=== PATIENT | female | born 1950 | race Caucasian/White ===

== ENCOUNTER 2023-04-15 16:42 | Emergency (ER) | payer OTHER, SELFPAY ==
[2023-04-15] VITALS (7 sets, daily range): BP systolic 123–182; BP diastolic 64–98; BMI 30.9
--- NOTE | 2023-04-15 17:12 | ED.GENMED ---
History of Present Illness
General
Chief Complaint: Chest Pain
Source: patient
Exam Limitations: none
Time Seen by Provider: 04/15/23 16:55
Nursing documentation reviewed up to this point in time: agreed with
Travel History
Have you had any contact with someone who has COVID-19?: No
Do you have any symptoms of coronavirus? Fever > 100 degrees, chills, cough, shortness of breath, sore throat, loss of taste or smell, muscle aches, or headache?: No
History of Present Illness
History of Present Illness:
Patient with history of hypertension and hypercholesterolemia, presents to ED secondary to sudden onset of chest pain around 4 PM, while she was with her family. Chest pain described as pressure, associated with jaw and teeth pain, without
diaphoresis or nausea sensation. Denies dizziness. Patient was told by her family members that she appears to be flushed. Patient states that she had similar symptoms 2 weeks ago which resolved spontaneously. Patient also has had similar chest
pain, which resulted in receiving cardiac catheterization 2 years ago, which was normal. Denies recent illness. Denies recent change in medications or diet. Denies recent travel. Denies recent surgery. Denies leg pain or swelling.
Review of Systems
Review of Systems
Allergies reviewed?: Yes
All Other Systems: ROS reviewed and negative except as documented in HPI and ROS
Constitutional: Reports no symptoms
EENT: Reports no symptoms
Respiratory: Reports no symptoms
Cardiac: Reports chest pain
ABD/GI: Reports no symptoms
: Reports no symptoms
Musculoskeletal: Reports no symptoms
Skin: Reports no symptoms
Neurological: Reports no symptoms
Phy Exam
Physical Exam
Physical Exam:
Physical Exam
General: no apparent distress, not acutely ill. afebrile
Head: nc/at. eomi
Neck: supple. no meningeal signs.
Heart: s1/s2 regular rate and rhythm, no murmur. equal radial pulses.
Lungs: no acute respiratory distress. clear bilaterally
Abdomen: normal bowel sounds. not tender.
Neuro: alert and oriented. no focal neurological deficits
Skin: no rash
Psychiatric: well kept. interactive and cooperative
Extremities: no edema. no calf tenderness.
Scores
Heart Score for Chest Pain Patients
STEMI patient?: No
History: Slightly or Non-Suspicious
ECG: Normal
Age: >/= 65 years
Risk Factors: 1 or 2 Risk Factors
Troponin: </= Normal Limit
Heart Score for Chest Pain Patients: 3
Heart Score Risk: 2.5% MACE over next 6 weeks
Course
Orders/Labs/Results
Orders:
Orders
04/15/23 16:43
Electrocardiogram (*1) Urgent
Reason for Study: Chest Pain
EKG- Treatment ONCE
04/15/23 17:01
Electrocardiogram (*1) Urgent
Reason for Study: Chest Pain
EKG- Treatment ONCE
04/15/23 17:02
CR Chest Portable - 1 View Urgent
Comment:
Reason For Exam: chest pain
Reason Study Needs to be Portable: Patient Unstable
04/15/23 17:27
Complete Blood Count/With Diff Urgent
Troponin I Urgent
04/15/23 18:29
Basic Metabolic Panel Urgent
04/15/23 19:33
EKG- Treatment ONCE
04/15/23 22:00
Electrocardiogram (*1) Urgent
Reason for Study: Chest Pain
04/15/23 22:04
Troponin I Urgent
Abnormal Lab Results
04/15/23 04/15/23
17:27 18:29
MPV 10.6 H fL
(7.4-10.4)
Absolute Monos (auto) 0.7 H 10^3/uL
(0.1-0.6)
BUN 18 H mg/dl
(7-17)
04/15/23 17:27
04/15/23 18:29
Vital Signs
Initial and Last Documented VS:
Initial Vital Signs
Temp Pulse Resp BP Pulse Ox
99.2 F 74 18 182/91 97
04/15/23 16:47 04/15/23 16:47 04/15/23 16:47 04/15/23 16:47 04/15/23 16:47
Last Documented Vital Signs
Temp Pulse Resp BP Pulse Ox
99.2 F 72 16 125/80 94
04/15/23 16:47 04/15/23 23:00 04/15/23 23:00 04/15/23 23:00 04/15/23 23:00
MDM/Problems Addressed
MDM/Problems Addressed:
Patient with an unremarkable workup in ED, including repeat troponin and EKG.
Patient will be discharged home in stable condition, to the care of her daughter, with recommendation to follow-up with her primary assembly inspector helper for reevaluation, or return to ED with recurrent chest pain.
Patient is afebrile, hemodynamically stable, and without any chest pain at time of discharge.
*EKG
Interpreted by ED Provider?: Yes
EKG Intrepretation Date: 04/15/23
Heart Rate: 81
Rate: normal
Rhythm: sinus
[place]: normal axis
Interval: normal interval
*Critical Care Note
Total Time (30-74mins, 75-104mins- exclusive of procedures): Not Applicable
ED Attending Note
-
Portions of this chart may have been created with voice recognition software.� Occasional wrong word or��sound alike� substitutions may have occurred due to the inherent limitations of voice recognition software.
Discharge Plan
Departure
Patient Disposition: Home (Routine Discharge)
Date of Disposition: 04/15/23
Time of Disposition: 22:57
Patient with high blood pressure during this ER visit?: Yes
Condition: Good
Discharge Problem:
Chest pain
Instructions: Chest Pain DCA Follow Up
Prescriptions:
No Action
montelukast 10 MG tablet
10 mg PO DAILY
budesonide-formoterol [Symbicort] 1 PUFF HFA aerosol inhaler
2 puff inhalation R BID
elderberry fruit and flower 1 EACH capsule
2 ea PO DAILY
aspirin 81 MG tablet,chewable
81 mg PO DAILY 0RF
doxycycline hyclate 100 mg Tablet
100 mg PO BID
atorvastatin 20 MG tablet
20 mg PO DAILY
Referrals:
Fanny Casey PA [Family Provider] -
Riley Alejandro MD [Active] -
Activity Restrictions/Additional Instructions:
As discussed, please follow-up with your assembly inspector helper for further evaluation and treatment. Please return to ED with recurrent chest pain.
Interventions
Interventions:
*Risk Screen - Suicide Last Done: 04/15/23 16:47
*General Assessment Last Done: 04/15/23 16:47
*Neglect/Abuse Screening Last Done: 04/15/23 16:47
ED- Fall Risk Assessment Last Done: 04/15/23 17:32
*ED COVID-19 Vaccine History Last Done: 04/15/23 16:47
*Nursing Disposition Last Done: 04/15/23 23:09
ED- Cardiac Assessment Last Done: 04/15/23 17:32
Discharge Date and Time
Discharge Date/Time: 04/15/23 23:11
[2023-04-15 17:39] LABS: % Basophils 0.6 % (0-2); % Eosinophils 2.5 % (0-6); % Immature Granulocytes 0.2 % (0-0.5); % Lymphocytes 35.8 % (20.5-51.1); % Monocytes 8.6 % (1.7-9.3); % Neutrophils 52.3 % (42.2-75.2); Absolute Basophils 0.1 10^3/uL (0-0.2); Absolute Eosinophils 0.2 10^3/uL (0-0.7); Absolute Lymphocytes 2.9 10^3/uL (1.2-3.4); Absolute Monocytes 0.7 10^3/uL (0.1-0.6); Absolute Neutrophils 4.2 10^3/uL (1.4-6.5); Hematocrit 41.5 % (37.0-47.0); Hemoglobin 14.2 g/dL (12.0-16.0); Mean Corp Hgb Conc. 34.2 g/dL (33.0-37.0); Mean Corpuscular Hgb 30.1 pg (27.0-31.0); Mean Corpuscular Volume 87.9 fL (81.0-99.0); Mean Platelet Volume 10.6 fL (7.4-10.4); Nucleated Red Blood Cells % 0 %; Platelet Count 220 10^3/uL (130-400); Red Blood Cell Count 4.72 10^6/uL (4.20-5.40); Red Cell Dist. Width 13.7 % (11.5-14.5); White Blood Cell Count 8.1 10^3/uL (4.8-10.8)
[2023-04-15 18:03] LABS: Troponin I < 0.012 ng/ml
[2023-04-15 19:02] LABS: Blood Urea Nitrogen 18 mg/dl (7-17); Calcium 8.7 mg/dl (8.4-10.2); Carbon Dioxide 27 mmol/L (22-30); Chloride 106 mmol/L (98-107); Estimated Creatinine Clearance 95 ml/min; Glucose 91 mg/dl (70-99); Sodium 136 mmol/L (135-145); eGFR > 60.00
[2023-04-15 22:40] LABS: Troponin I < 0.012 ng/ml
== END 2023-04-15 23:11 | disposition home or self-care (01) ==
LOC: EMR 16:42
PROVIDERS: Emergency Medicine; EMERGENCY PHYSICIAN Emergency Medicine; FAMILY PHYSICIAN Physician Assistant Medical
DX: R07.89 Other chest pain (principal); I10 Essential (primary) hypertension; R68.84 Jaw pain
CPT/HCPCS: 99285; 71045; 80048; 84484; 85025; 93005

== ENCOUNTER → 2023-05-16 08:02 | Outpatient (REF) | payer OTHER, SELFPAY | LOC: DHCBC/DCA 08:02 | PROVIDERS: ATTENDING PHYSICIAN Internal Medicine Cardiovascular Disease; FAMILY PHYSICIAN Physician Assistant Medical | DX: R07.9 Chest pain, unspecified (principal) | CPT/HCPCS: 78452; 93017; A9500 ==

== ENCOUNTER 2023-06-21 11:30 | Emergency (ER) | payer OTHER, SELFPAY ==
[2023-06-21] VITALS (7 sets, daily range): BP systolic 136–162; BP diastolic 64–98; PULSE 61; BMI 31.5
[2023-06-21 11:55] LABS: % Basophils 0.7 % (0-2); % Eosinophils 4.8 % (0-6); % Immature Granulocytes 0.3 % (0-0.5); % Lymphocytes 43.7 % (20.5-51.1); % Monocytes 6.2 % (1.7-9.3); % Neutrophils 44.3 % (42.2-75.2); Absolute Basophils 0.1 10^3/uL (0-0.2); Absolute Eosinophils 0.4 10^3/uL (0-0.7); Absolute Lymphocytes 3.8 10^3/uL (1.2-3.4); Absolute Monocytes 0.5 10^3/uL (0.1-0.6); Absolute Neutrophils 3.8 10^3/uL (1.4-6.5); Hematocrit 47.3 % (37.0-47.0); Hemoglobin 15.4 g/dL (12.0-16.0); Mean Corp Hgb Conc. 32.6 g/dL (33.0-37.0); Mean Corpuscular Hgb 29.6 pg (27.0-31.0); Mean Corpuscular Volume 90.8 fL (81.0-99.0); Mean Platelet Volume 11.1 fL (7.4-10.4); Nucleated Red Blood Cells % 0 %; Platelet Count 225 10^3/uL (130-400); Red Blood Cell Count 5.21 10^6/uL (4.20-5.40); Red Cell Dist. Width 13.8 % (11.5-14.5); White Blood Cell Count 8.6 10^3/uL (4.8-10.8)
[2023-06-21 12:05] LABS: ALT (SGPT) 21 U/L (0-35); AST (SGOT) 21 U/L (14-36); Albumin 3.9 g/dl (3.5-5.0); Alkaline Phosphatase 101 U/L (38-126); Blood Urea Nitrogen 17 mg/dl (7-17); Calcium 8.9 mg/dl (8.4-10.2); Carbon Dioxide 22 mmol/L (22-30); Chloride 107 mmol/L (98-107); Estimated Creatinine Clearance 96 ml/min; Glucose 106 mg/dl (70-99); Potassium 4.1 mmol/L (3.5-5.1); Sodium 134 mmol/L (135-145); Total Bilirubin 0.4 mg/dl (0.2-1.3); Total Protein 6.4 g/dl (6.3-8.2); eGFR > 60.00
[2023-06-21 12:14] LABS: Troponin I < 0.012 ng/ml
--- NOTE | 2023-06-21 13:21 | ED.GENMED ---
History of Present Illness
General
Chief Complaint: Dizziness
Time Seen by Provider: 06/21/23 12:48
Travel History
Have you had any contact with someone who has COVID-19?: No
Do you have any symptoms of coronavirus? Fever > 100 degrees, chills, cough, shortness of breath, sore throat, loss of taste or smell, muscle aches, or headache?: No
History of Present Illness
History of Present Illness:
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 She states she was in a reclined position
having her hair washed, when she stood upright she became profoundly vertiginous and felt as though she might vomit. She did not lose consciousness. She feels improved currently but any movement in the upright position provokes more symptoms.
Denies any vision changes, headache chest pain, or difficulty breathing currently
Review of Systems
Review of Systems
Allergies reviewed?: Yes
All Other Systems: ROS reviewed and negative except as documented in HPI and ROS
Phy Exam
Physical Exam
Physical Exam:
GEN: Well appearing, NAD, WDWN
HEENT: Oral mucosa moist, no scleral icterus, no nasal congestion
Cardiac: Regular rate
Lung: No respiratory distress, no tachypnea
MSK: No gross deformity or injuries
Skin: Good color, no pallor or jaundice, no rashes
Neuro: AO x3; CN II-XII grossly intact. BUE strength 5/5 in all lopez, sensation intact and symmetric. BLE strength 5/5 in all lopez, sensation intact and symmetric, no limb ataxia x 4. Horizontal nystagmus provoked with upright positioning
Psych: Calm, cooperative
Course
Orders/Labs/Results
Orders:
Orders
06/21/23 11:33
Electrocardiogram (*1) Urgent
Reason for Study: Chest Pain
Cardiac Monitoring- Treatment ONCE
EKG- Treatment ONCE
IV Insert/Care/Rem.- Treatment PRN
O2 Therapy [RESP] Urgent
Titrate/Wean O2 to maintain O2 sat greater than (%): 90
Special Instructions: Maintain sats >/=90%
Pulse Ox/spot Check [RESP] Urgent
Quantity: 1
Special Instructions: ON ROOM AIR
06/21/23 11:36
Complete Blood Count/With Diff Urgent
Comprehensive Metabolic Panel Urgent
Troponin I Urgent
06/21/23 13:03
Pt Eval And Treat Urgent
Treatment: BPPV
Activity Level: As Tolerated
06/21/23 13:50
Meclizine [Antivert] 12.5 mg PO NOW STA
06/21/23 14:03
Meclizine [Antivert] 12.5 mg PO NOW STA
Abnormal Lab Results
06/21/23
11:36
Hct 47.3 H %
(37.0-47.0)
MCHC 32.6 L g/dL
(33.0-37.0)
MPV 11.1 H fL
(7.4-10.4)
Absolute Lymphs (auto) 3.8 H 10^3/uL
(1.2-3.4)
Sodium 134 L mmol/L
(135-145)
Creatinine 0.5 L mg/dL
(0.6-1.0)
Glucose 106 H mg/dl
(70-99)
06/21/23 11:36
06/21/23 11:36
Vital Signs
Initial and Last Documented VS:
Initial Vital Signs
Pulse Resp BP Pulse Ox
63 19 162/84 97
06/21/23 11:34 06/21/23 11:34 06/21/23 11:34 06/21/23 11:34
Last Documented Vital Signs
Pulse Resp BP Pulse Ox
65 21 136/83 93
06/21/23 14:45 06/21/23 14:45 06/21/23 14:00 06/21/23 12:30
MDM/Problems Addressed
MDM/Problems Addressed:
Patient's clinical findings are most compatible with benign positional vertigo provoked by recumbent positioning while getting her hair dressed. She has no focal neurologic deficits while at rest in bed. She was evaluated by physical therapy with
strong provocation of response through a Mariama-Hallpike maneuver, her symptoms did improve to some degree however again worsened prompting need for meclizine. No indication for neuroimaging, do not suspect stroke at this time. Will prescribe short
course of meclizine orders are written for outpatient physical therapy
*Critical Care Note
Total Time (30-74mins, 75-104mins- exclusive of procedures): Not Applicable
ED Attending Note
-
Portions of this chart may have been created with voice recognition software.� Occasional wrong word or��sound alike� substitutions may have occurred due to the inherent limitations of voice recognition software.
Discharge Plan
Departure
Patient Disposition: Home (Routine Discharge)
Date of Disposition: 06/21/23
Time of Disposition: 14:51
Patient with high blood pressure during this ER visit?: No
Discharge Problem:
Benign paroxysmal positional vertigo
Instructions: Vertigo (a type of dizziness)
Prescriptions:
New
meclizine 12.5 mg tablet
12.5 - 25 mg PO TID PRN (Reason: dizziness) Qty: 20 0RF
No Action
montelukast 10 MG tablet
10 mg PO DAILY
budesonide-formoterol [Symbicort] 1 PUFF HFA aerosol inhaler
2 puff inhalation R BID
elderberry fruit and flower 1 EACH capsule
2 ea PO DAILY
aspirin 81 MG tablet,chewable
81 mg PO DAILY 0RF
doxycycline hyclate 100 mg Tablet
100 mg PO BID
atorvastatin 20 MG tablet
20 mg PO DAILY
Referrals:
Fanny Casey PA [Family Provider] -
Interventions
Interventions:
*Risk Screen - Suicide Last Done: 06/21/23 11:39
*General Assessment Last Done: 06/21/23 11:37
*Neglect/Abuse Screening Last Done: 06/21/23 11:39
ED- Fall Risk Assessment Last Done: 06/21/23 12:34
*ED COVID-19 Vaccine History Last Done: 06/21/23 11:37
*Nursing Disposition Last Done: 06/21/23 15:10
ED- Neurological Assessment Last Done: 06/21/23 11:38
ED- Cardiac Assessment Last Done: 06/21/23 12:34
Discharge Date and Time
Discharge Date/Time: 06/21/23 15:10
Print Language: INDONESIAN
[2023-06-21] MEDS: ANTIVERT 12.5 MG PO (14:04)
== END 2023-06-21 15:10 | disposition home or self-care (01) ==
LOC: EMR 11:30
PROVIDERS: EMERGENCY PHYSICIAN Emergency Medicine; FAMILY PHYSICIAN Physician Assistant Medical
DX: H81.10 Benign paroxysmal vertigo, unspecified ear (principal)
CPT/HCPCS: 99284; 80053; 84484; 85025; 93005